=== PATIENT | male | born 1965 | race Two or more races ===

== ENCOUNTER 2023-07-02 18:57 | Emergency (ER) | payer OTHER ==
[~2023-07-02] VITALS: Ht 167.6 cm; Wt 77.1 kg
[2023-07-02] MEDS ORDERED: METFORMIN HCL1000 M2 (19:03)
[2023-07-02] MEDS ORDERED: IBUprofen 100 MG/5 ML-120ML ML PO STA ×2 (20:02→20:07)
== END 2023-07-02 21:34 | disposition home or self-care (01) ==
LOC: ER 18:57
DX: M79.601 Pain in right arm (principal); M25.551 Pain in right hip; M25.521 Pain in right elbow

== ENCOUNTER → 2024-04-29 | Day surgery (SDC) | payer OTHER ==
[2024-04-22 11:25] LABS: HEMATOCRIT 50.5 % (39.0-48.0); MEAN CELL VOLUME 94.6 fL (80.0-100.00); MEAN CORPUSCULAR HGB CONC 33.5 g/dl (32.0-36.0); PLATELET COUNT 263 K/uL (150-450); RED BLOOD COUNT 5.34 M/uL (4.00-6.00); RED CELL DISTRIBUTION WIDTH 14.1 % (11.5-14.5)
[2024-04-22 11:27] LABS: PH,URINE 5.5 (5.0-8.0); URINE APPEARANCE Clear; URINE BILIRRUBIN Negative (NEGATIVE); URINE BLOOD Negative; URINE COLOR Yellow; URINE KETONE Negative (NEGATIVE); URINE LEUKOCYTE Negative; URINE NITRATE Negative; URINE PROTEIN Trace (NEGATIVE); URINE UROBILINOGEN 0.2 E.U./dl
[2024-04-22 11:27] LABS: HEMOGLOBIN 16.9 g/dL (13-16.00); MEAN CORPUSCULAR HEMOGLOBIN 31.6 pg (27.00-32.0)
[2024-04-22 11:31] LABS: URINE BACTERIA 6.1 uL (0.0-1933)
[2024-04-22 11:38] LABS: URINE EPITHELIAL CELLS 0.9 uL (0.0-38.8); URINE GLUCOSE >=1000 MG/DL (NEGATIVE); URINE RBC 1.3 uL (0.0-20.8); URINE WBC 1.7 uL (0.0-23.2)
[2024-04-22 11:51] LABS: INR 0.94; PROTHROMBIN TIME 10.3 SECONDS (9.0-11.5)
[2024-04-22 11:55] VITALS: BP 108/74
[2024-04-22 12:05] LABS: CALCIUM 9.7 mg/dL (8.5-10.1); CREATININE SERUM 0.66 mg/dL (0.70-1.30); GFR 123.97; POTASSIUM 4.72 mEq/L (3.5-5.1)
[~2024-04-29] VITALS: Ht 170.2 cm; Wt 79.8 kg
[~2024-04-29] MED LIST: ATORVASTATIN CA10 MG PO; BUPIVACAINE HCL/MPF 0.5% 30ML VIAL ONE; CEFAZOLIN SODIUM 1,000 MG VIAL ONE; FARXIGA10 MG PO; IRBESARTAN-HCT1 EAC1 PO; KETO10TA2 PO; METFORMIN HCL1000 M2; MIRALAX17 GM PO; MORPHINE SULFATE 4 MG/ML VIAL IV ONE; SUGAMMADEX SODIUM 200 MG/2 ML VIAL IV ONE; TRAMADOL HCL50 MG PO; TYLENOL ARTHRI650 MG PO
== END | disposition home or self-care (01) ==
LOC: ADM 04-22 08:30 → CIR.AMB 07:00
PROVIDERS: ATTEND Surgery
DX: K42.0 Umbilical hernia with obstruction, without gangrene (principal); I10 Essential (primary) hypertension; E11.9 Type 2 diabetes mellitus without complications; E78.5 Hyperlipidemia, unspecified; J44.9 Chronic obstructive pulmonary disease, unspecified; K76.0 Fatty (change of) liver, not elsewhere classified
CPT/HCPCS: 49594; C1781